=== PATIENT | male | born 1990 | race African-American/Black ===

== ENCOUNTER 2021-07-27 15:32 | Emergency (ER) | payer MEDICAID, SELFPAY ==
[2021-07-27 16:09] VITALS: BP 138/77; PULSE 96; RESP 18; TEMP 36.7; O2SAT 99; BMI 23.0
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
[2021-07-27] MEDS: ibuprofen 800 mg tablet PO (17:56)
[2021-07-27 19:15] VITALS: BP 132/74; PULSE 90; RESP 18; TEMP 36.7; O2SAT 99
== END 2021-07-27 19:16 | disposition home or self-care (01) ==
PROVIDERS: Emergency Provider Nurse Practitioner Family
DX: S63.502A Unspecified sprain of left wrist, initial encounter (principal); S80.00XA Contusion of unspecified knee, initial encounter; V89.2XXA Person injured in unspecified motor-vehicle accident, traffic, initial encounter
CPT/HCPCS: 72170; 73030; 73110; 73562; 99283